=== PATIENT | male | born 1965 | race Caucasian/White ===

== ENCOUNTER 2019-06-09 09:35 | Emergency (ER) | payer OTHER ==
[~2019-06-09] VITALS: Ht 182.9 cm; Wt 95.3 kg
[2019-06-09 09:37] VITALS: Ht 182.9 cm; Wt 95.3 kg
[2019-06-09 10:19] VITALS: BP 140/90
== END 2019-06-09 10:53 | disposition home or self-care (01) ==
LOC: ED 09:35
DX: B34.9 Viral infection, unspecified (principal); I10 Essential (primary) hypertension; E78.00 Pure hypercholesterolemia, unspecified; Z20.828 Contact with and (suspected) exposure to other viral communicable diseases
CPT/HCPCS: U0002

== ENCOUNTER 2019-08-15 12:03 | Emergency (ER) | payer OTHER ==
[~2019-08-15] VITALS: Ht 182.9 cm; Wt 95.7 kg
[2019-08-15 12:09] VITALS: Ht 182.9 cm; Wt 95.7 kg
[2019-08-15 14:09] VITALS: BP 125/61
== END 2019-08-15 14:09 | disposition home or self-care (01) ==
LOC: ED 12:03
DX: S53.401A Unspecified sprain of right elbow, initial encounter (principal); I10 Essential (primary) hypertension; E78.00 Pure hypercholesterolemia, unspecified; X58.XXXA Exposure to other specified factors, initial encounter; Y93.89 Activity, other specified; Y92.89 Other specified places as the place of occurrence of the external cause; Y99.8 Other external cause status
CPT/HCPCS: 90715; J1885; J2270